=== PATIENT | male | born 1940 | race Caucasian/White ===

== ENCOUNTER 2024-02-26 15:53 | Emergency (ER) | payer MEDICARE, OTHER ==
[~2024-02-26] VITALS: Ht 154.9 cm; Wt 72.6 kg
[2024-02-26 16:38] LABS: BASOPHILS % (AUTO) 0.3 % (0.0-2.0); EOSINOPHILS % (AUTO) 0.5 % (0.0-6.0); HEMATOCRIT 43 % (39-51); HEMOGLOBIN 14.5 g/dL (13.5-17.5); LYMPHOCYTES # (AUTO) 1.2 K/uL (0.8-4.8); LYMPHOCYTES % (AUTO) 18.1 % (20.0-44.0); MEAN CORPUSCULAR HEMOGLOBIN 31 PG (26.0-33.0); MEAN CORPUSCULAR HGB CONC 34 g/dl (31.0-36.0); MEAN CORPUSCULAR VOLUME 90 fL (80-96); MONOCYTES # (AUTO) 1.1 K/uL (0.1-1.30); MONOCYTES % (AUTO) 16.9 % (2.0-12.0); NEUTROPHILS # (AUTO) 4.1 K/uL (1.8-8.9); NEUTROPHILS % (AUTO) 64.2 % (43.0-81.0); PLATELET COUNT (AUTO) 191 K/uL (150-450); RED BLOOD CELL COUNT(AUTO) 4.73 MIL/uL (4.5-6.0); RED CELL DISTRIBUTION WIDTH 13.7 % (11.5-15.0); WHITE BLOOD COUNT (AUTO) 6.4 K/uL (4.3-11.0)
[2024-02-26 16:48] LABS: CALCIUM, SERUM 8.9 mg/dL (8.5-10.1); CARBON DIOXIDE 27 mmol/L (21-32); CHLORIDE 99 mmol/L (98-107); CREATININE 1.1 mg/dL (0.6-1.3); GLUCOSE 149 mg/dL (74-106); POTASSIUM 4.2 mmol/L (3.5-5.1); SODIUM SERUM 134 mmol/L (136-145); UREA NITROGEN, BLOOD 16 mg/dL (7-18)
[2024-02-26 16:52] LABS: INR 1.02 (0.91-1.10); PARTIAL THROMBOPLASTIN TIME 26.5 SEC (24.3-34.3); PROTHROMBIN TIME 10.5 SECS (9.2-11.1)
[2024-02-26 16:58] LABS: ALANINE AMINOTRANSFERASE 35 U/L (12-78); ALCOHOL, BLOOD < 3 mg/dL (0-10); ALKALINE PHOSPHATASE 68 U/L (46-116); ASPARTATE AMINOTRANSFERASE 17 U/L (15-37); BILIRUBIN,DIRECT 0.1 mg/dL (0.0-0.2); BILIRUBIN,TOTAL 0.5 mg/dL (0.2-1.0); TOTAL PROTEIN, SERUM 7.6 g/dL (6.4-8.2)
[2024-02-26 16:59] LABS: SERUM AMMONIA < 10 umol/L (11-32)
[2024-02-26 17:03] LABS: LACTIC ACID 1.4 mmol/L (0.4-2.0)
[2024-02-26 17:58] LABS: LYMPHOCYTES % (MANUAL) 25 % (16-48); MONOCYTES % (MANUAL) 12 % (0-11.0); NEUTROPHILS % (MANUAL) 63 (42-76)
[2024-02-26 17:59] LABS: ANISOCYTOSIS 1+; PLATELET ESTIMATE ADEQUATE
[2024-02-26 18:56] LABS: APPEARANCE,URINE CLEAR (CLEAR); BILIRUBIN,URINE NEGATIVE (NEGATIVE); BLOOD, URINE TRACE-INTA Ery/uL (NEGATIVE); COLOR,URINE OTHER (YELLOW); KETONES,URINE NEGATIVE (NEGATIVE); LEUKOCYTE ESTERASE ,URINE NEGATIVE (NEGATIVE); NITRITE, URINE NEGATIVE (NEGATIVE); PROTEIN,URINE NEGATIVE (NEGATIVE); UGLUCOSE NEGATIVE (NEGATIVE); UROBILINOGEN,URINE 0.2 EU/dL (0.2)
[2024-02-26] MEDS ORDERED: CLOP75TA15 PO (19:11)
[2024-02-26] MEDS ORDERED: AZIT250T13 PO (19:11)
[2024-02-26] MEDS ORDERED: METO-357 PO (19:11)
[2024-02-26] MEDS ORDERED: INSU100I24 SQ (19:11)
[2024-02-26] MEDS ORDERED: EVOL140P3 SQ (19:11)
[2024-02-26] MEDS ORDERED: LATA5DRO EACHEYE (19:11)
[2024-02-26] MEDS ORDERED: ASPI-1169 PO (19:11)
[2024-02-26] MEDS ORDERED: AMLO5TAB4 PO (19:11)
[2024-02-26] MEDS ORDERED: OMEP20CA15 PO (19:11)
[2024-02-26] MEDS ORDERED: METF-440 PO (19:11)
[2024-02-26 19:12] LABS: ADD URINE CULTURE NO; BACTERIA,URINE Few /HPF (None Seen); SQUAMOUS EPITHELIAL CELL,UR None Seen /HPF (None Seen); WBC,URINE 0-2 /HPF (0-3)
[2024-02-26 19:15] LABS: AMPHETAMINE, URINE NEGATIVE (NEGATIVE); BARBITURATE, URINE NEGATIVE (NEGATIVE); BENZODIAZEPINE, URINE NEGATIVE (NEGATIVE); CANNABINOID, URINE NEGATIVE (NEGATIVE); COCCAINE, URINE NEGATIVE (NEGATIVE); OPIATE, URINE NEGATIVE (NEGATIVE); PHENCYCLIDINE SCREEN,URINE NEGATIVE (NEGATIVE)
[2024-02-27 00:33] VITALS: BP 135/45; TEMP 98.6; O2SAT 97
== END 2024-02-27 00:38 | disposition short-term general hospital (02) ==
LOC: ER 15:58
DX: R41.82 Altered mental status, unspecified (principal); R53.1 Weakness; E11.9 Type 2 diabetes mellitus without complications; I10 Essential (primary) hypertension; Z79.02 Long term (current) use of antithrombotics/antiplatelets; Z79.82 Long term (current) use of aspirin; Z79.84 Long term (current) use of oral hypoglycemic drugs; Z20.822 Contact with and (suspected) exposure to COVID-19
CPT/HCPCS: 36415; 70450-TC; 71045-TC; 80048-TC; 80076-TC; 81001; 82140-TC; 82962-TC; 83605-TC; 84443-TC; 84484-TC; 85025-TC; 85730-TC; 87040-TC; G0480